=== PATIENT | male | born 1970 | race Caucasian/White ===

== ENCOUNTER 2022-10-02 08:35 | Day surgery (SDC) | payer OTHER, SELFPAY ==
[2022-10-02] VITALS (15 sets, daily range): BP systolic 94–169; BP diastolic 55–130; PULSE 65–79; RESP 14–16; TEMP 36.4–36.7; O2SAT 91–99; BMI 35.9
[2022-10-02] MEDS: SODIUM CHLORIDE 0.9 % (FLUSH) 10 ML SYRINGE IVF (09:10)
[2022-10-02] MEDS: LACTATED RINGERS 1000 ML 1,000 ML 100 ML IV (09:10)
--- NOTE | 2022-10-02 09:22 | SUR.PREOP ---
Patient provided home covid negative results to RN.
[2022-10-02] MEDS: fentaNYL 100 MCG/2 ML inj IVP (09:35)
[2022-10-02] MEDS: MIDAZOLAM HCL 1 MG/ML inj IVP (09:35)
--- NOTE | 2022-10-02 09:41 | SUR.PREOP ---
TIME?OUT:?0934 PT/Alexsander VARGHESE RN/Williams WELCH MDA?VERIFICATION?OF?SURGICAL?SITE,?PROCEDURE,?AND?CONSENT OBTAINED?PRIOR?TO?INVASIVE?PROCEDURE.
[2022-10-02] MEDS: CEFAZOLIN 2 GM in 0.9 % SODIUM CHLORIDE Mini-bag 100 ML IVPB (10:42)
[2022-10-02] MEDS: EPINEPHrine 1 MG in SODIUM CHLORIDE IRRIG SOLUTION 3,000 ML 9003 MG IRRIGATION ×5 (12:14→12:45)
--- NOTE | 2022-10-02 12:25 | P.NB_ITS ---
Nerve Block Nerve Block Time Seen by Provider: 09:37 Date Seen: 10/02/22 Type of block requested by surgeon for post-operative analgesia: supraclavicular Side: right Time out performed: Yes Verification of patient name: Yes Verification of date of : Yes Site marking: site marked Name of person performing procedure: Roger Continuous monitoring Was continuous monitoring of O2 sat, B/P, cardiac rehabilitation specialist, recorded every 15 minutes?: Yes Procedure Checklist: sterile prep, needles and gloves Ultrasound guided. Images saved: Yes Medications given in 5ml increments after negative aspiration: Ropivicaine %: 0.5 mL: 20 Needle gauge: 22 Decadron (mg): 10 Precedex (mcg): 25 Patient tolerated procedure well: Yes Block Charges Block Charge (with Pro Fee): Brachial Plexus Use of Ultrasound Machine for Block: Yes- US Guidance/pain block
--- NOTE | 2022-10-02 12:25 | W.ANESCHARGE ---
Anesthesia Charges Start Date/Time Anesthesia Start Date: 10/02/22 Anesthesia Start Time: 10:34 Stop Date/Time Anesthesia Stop Date: 10/02/22 Anesthesia Stop Time: 13:05
[2022-10-02] MEDS: EPINEPHrine 1 MG in SODIUM CHLORIDE IRRIG SOLUTION 3,000 ML 1803 MG IRRIGATION (12:45)
--- NOTE | 2022-10-02 12:46 | PM.ORPRC ---
Procedure Note Date of procedure: 10/02/22 Procedure: PREOPERATIVE DIAGNOSES: 1. Right shoulder rotator cuff tear, acute, traumatic 2. Right shoulder subacromial impingement syndrome. POSTOPERATIVE DIAGNOSES: 1. Right shoulder rotator cuff tear, acute, [id number] supraspinatus and upper 1/2 subscapularis 2. Right shoulder subacromial impingement syndrome. 3. Right shoulder anterior and superior labral fraying and tearing NAME OF OPERATION: 1. Right shoulder arthroscopic rotator cuff [id number] supraspinatus and upper subscapularis. 2. Right shoulder arthroscopic limited glenohumeral debridement 3. Right shoulder arthroscopic bursectomy, subacromial decompression/partial acromioplasty. SURGEON: Robert Gonzalez MD BOILER ERECTOR: Boyd JJ. Of note, a skilled production administrative assistant was critical for this case to aide in patient positioning, suture manipulation, arm positioning, instrument positioning, and closure. ANESTHESIA: General plus preoperative supraclavicular block. EBL: Less than 25 mL IMPLANTS: Arthrex 4.75 mm BioComposite SwiveLock suture anchor (x2); 5.5 mm BioComposite SwiveLock suture anchor (x1); 2.6 mm FiberTak RC (x2) COMPLICATIONS: None evident INDICATIONS: The patient is a pleasant, 52-year-old male who has experienced right shoulder pain that has been increasing in recent time related to a recent traumatic event/fall. Physical exam and imaging were consistent with a rotator cuff tear. Given their findings, as well as the weakness and pain, and inadequate response to nonoperative management, recommendation was made for surgery. FINDINGS: Exam under anesthesia revealed stable shoulder with excellent range of motion. The diagnostic arthroscopy revealed healthy chondral surfaces of the glenohumeral joint. The Subscapularis tendon was torn through its upper half. The far distal portion appeared to still be intact. The long head of the biceps tendon was intact and within the groove. It showed no significant tearing. The superior rotator cuff tendon was found to be torn full-thickness to endure breath of the supraspinatus. It was retracted the mid humeral head. The infraspinatus appeared to be intact. The labrum was torn in the anterior and superior aspects. No loose bodies were identified within the pouch or subscapularis recess. PROCEDURE: Following a thorough discussion of risks, benefits, and alternatives, consent was obtained and the right shoulder was marked. The patient was brought to the operating room and placed supine on the operating table. Induction of anesthesia was completed after preoperative supraclavicular block was administered in preop holding. Appropriate time out was performed identifying proper patient, site, and procedure. 2 g IV Ancef was administered within 1 hour of incision preoperatively. The right upper extremity was prepped and draped in the appropriate sterile fashion using ChloraPrep prep. This was after the patient was positioned in the beach chair with their head in neutral alignment and all bony prominences well padded. The shoulder was insufflated with 20mL of normal saline via an 18g spinal needle from a posterior approach. An 11 blade skin incision allowed a blunt trochar to be inserted and diagnostic arthroscopy to be performed with the findings as noted above. An anterior portal was established with an outside in technique. This allowed the probe to be inserted and confirm the diagnostic arthroscopic findings. The shaver was then inserted and allowed debridement of the anterior and superior labrum. The long head of biceps was probed and found to be stable within the bicipital groove despite the subscapularis tear. This was particularly the case following the subscapularis repair. We did assess whether it need for tenodesis/tenotomy was present, it was not felt to be the case. While typically subscapularis tear is still cause biceps instability, remarkably this remains stable. The upper border subscapularis was repaired after debriding the lesser tuberosity with the shaver and [place] cautery. Subscapularis was captured in horizontal mattress fashion with a fiber tape suture. The tails were brought to a single anchor in the lesser tuberosity with excellent reapproximation of the subscap tendon and good excursion/tension. Thereafter, the subacromial space was entered. Here, a complete bursectomy and partial acromioplasty/subacromial decompression was performed with a combination of radiofrequency ablator, the shaver, and a 5.5 mm bur. Further inspection of the supraspinatus and infraspinatus rotator cuff was performed. This identified the tear as noted above. The margins of the tear were debrided, and the greater tuberosity was debrided with a combination of the apollo cautery, shaver, and bur on reverse setting. After gentle decortication, a speed bridge configuration with a medial isac was engaged. 2 medial anchors were placed and the sutures were passed with a fiber link. The eyelet suture tails were then retrieved and tied and cinched down for the medial isac purpose. A tail from each of the medial row anchor FiberTapes were then brought to a lateral row anchor along with 1 of the tails from the medial isac. Excellent reapproximation of the tissue to the greater tuberosity was achieved with broad footprint compression. Prior to anchor special needs bus driver removal, the eyelet sutures were tugged on for each anchor and found that the anchor had excellent stability within the bone. The shoulder was placed through range of motion and found to be stable. The rotator cuff was re-probed and found to be stable. Instruments were removed. Excess fluid was drained, closure performed with 4-0 Monocryl and Steri-Strips. Dressings were applied. Sling was applied. The patient was awoken from anesthesia and transferred to the PACU in stable condition. A skilled production administrative assistant was critical for this case to aid in patient positioning, limb positioning, skill to manipulate arthroscopic instruments and camera, suture management, patient safety, and closure. PLAN: 1. Elbow, forearm, wrist and digit range of motion as tolerated. 2. Encouraged ice. 3. Percocet for pain as needed. 4. Sling at all times except for ROM and showering. 5. Follow up with PA visit in 1-2 weeks for wound check. Initiate physical therapy following that visit for passive range of motion. Initiate active assisted range of motion at 3-4 weeks. May do pendulums now.
--- NOTE | 2022-10-02 13:04 | W.ANESCHARGE ---
Anesthesia Charges Start Date/Time Anesthesia Start Date: 10/02/22 Anesthesia Start Time: 10:34 Stop Date/Time Anesthesia Stop Date: 10/02/22 Anesthesia Stop Time: 13:05
== END 2022-10-02 14:20 | disposition home or self-care (01) ==
PROVIDERS: Visit Provider Orthopaedic Surgery Sports Medicine
PROC: (CPT 29805; principal; 2022-10-02 11:15)
DX: S46.011A Strain of muscle(s) and tendon(s) of the rotator cuff of right shoulder, initial encounter (principal); M75.41 Impingement syndrome of right shoulder; S43.431A Superior glenoid labrum lesion of right shoulder, initial encounter; G89.18 Other acute postprocedural pain
CPT/HCPCS: 29827; 29826; 29822; 01630; 64415; 76942; C1713; J0171; J0330; J0690; J1100; J2250; J2370; J2405; J2704; J2795; J3010; J7120

== ENCOUNTER 2023-01-17 10:00 | Outpatient (RCR) | payer OTHER, SELFPAY | END 2023-05-01 16:05 | disposition home or self-care (01) | PROVIDERS: Visit Provider Physician Assistant Surgical | DX: Z98.890 Other specified postprocedural states (principal); M25.511 Pain in right shoulder; M25.611 Stiffness of right shoulder, not elsewhere classified; Z47.89 Encounter for other orthopedic aftercare; Z51.89 Encounter for other specified aftercare | CPT/HCPCS: 97110; 97140; 97161; 97530 ==